=== PATIENT | female | born 1975 | race Caucasian/White ===

== ENCOUNTER 2024-05-18 08:52 | Day surgery (SDC) | payer BC ==
[2024-05-14 14:08] VITALS: BP 157/96
[~2024-05-18] VITALS: Ht 167.6 cm; Wt 108.2 kg
[~2024-05-18 08:52] MED LIST: CALCIUM 600 MG1 EA10 PO; CEFAZOLIN SODIUM 2 GM/20 ML SYR IV SCH; DEXAMETHASONE SOD PHOS 4 MG/ML VIAL ONE; ESTRACE2 MG PO; FAMOTIDINE 20 MG/ 2 ML VIAL ONE; IBLOOD GLUCOSE TEST STRIP 1 EA TEST VI PRN; KETOROLAC TROMETHAMINE 30 MG/ML VIAL ONE; LACTATED RINGER'S 1,000 ML IV ONE; LACTATED RINGER'S 1,000 ML IV SCH; LIDOCAINE HCL 1% 5 ML SDV INJ ONE; MAGNESIUM200 MG PO; MEPERIDINE HCL 25 MG/1 ML VIAL IV PRN; METOCLOPRAMIDE HCL 10 MG/2 ML SDV IV PRN; METOCLOPRAMIDE HCL 10 MG/2 ML SDV ONE; MIDAZOLAM HCL 2 MG/2 ML VIAL ONE; NALOXONE HCL 0.4 MG SYR IV PRN; PROCHLORPERAZINE EDISYLATE 10 MG/2 ML VIAL IV PRN; VITAMIN D350 MC3 PO; droPERidol 5 MG/2 ML VIAL IV PRN; fentaNYL citrate 100 MCG/2 ML VIAL ONE; fentaNYL citrate 50 MCG/ML SDV IV PRN; ondansetron HCL 4 MG/2 ML VIAL IV PRN; ondansetron HCL 4 MG/2 ML VIAL ONE; propofoL 200 MG/20 ML VIAL ONE
[2024-05-18 09:38] VITALS: BP 146/86
[2024-05-18 09:42] LABS: BUN/CREATININE RATIO 18.68 (6.0-28.6); CALCIUM 8.5 mg/dL (8.5-10.1); CREATININE, SERUM 0.91 mg/dL (0.55-1.02)
[2024-05-18] MEDS ORDERED: MORPHINE SULFATE 4 MG/ML VIAL IV PRN (10:00)
[2024-05-18] MEDS ORDERED: OXYCODONE/APAP 5/325 TAB PO PRN (10:00)
[2024-05-18] MEDS ORDERED: ondansetron HCL 4 MG/2 ML VIAL IV PRN (10:00)
--- NOTE | 2024-05-18 12:02 | NUR ---
05/18/24 1202 Liya Sams 1150: PATIENT IS AWAKE. NASAL AIRWAY IS REMOVED. PATIENT TOLERATES THIS WELL. 1202: OXYGEN SATURATION REMAINS 99% ON 6L VIA MASK. OXYGEN IS REMOVED AT THIS TIME.
[2024-05-18] MEDS ORDERED: CIPRO500 MG PO (12:03)
[2024-05-18 12:16] VITALS: BP 116/81
== END 2024-05-18 12:30 | disposition home or self-care (01) ==
LOC: OPS 08:52 → DS 08:52 → OPS 10:30 → DS 11:00 → OPS 12:30
PROVIDERS: Nurse Anesthetist, Certified Registered; ATTEND Urology
PROC: 0TVD0ZZ Restriction of Urethra, Open Approach (ICD-10-PCS; principal; 2024-05-18 10:30)
DX: N36.42 Intrinsic sphincter deficiency (ISD) (principal); N39.3 Stress incontinence (female) (male); E78.5 Hyperlipidemia, unspecified; E66.9 Obesity, unspecified; G43.009 Migraine without aura, not intractable, without status migrainosus; Z88.5 Allergy status to narcotic agent; Z88.8 Allergy status to other drugs, medicaments and biological substances; Z68.37 Body mass index [BMI] 37.0-37.9, adult
CPT/HCPCS: 00910; 36415; 80048; J0690; J1100; J1885; J2250; J2405; J2704; J2765; J3010; J7121; L8606